=== PATIENT | male | born 2000 | race Caucasian/White ===

== ENCOUNTER 2022-08-12 08:05 | Emergency (ER) | payer OTHER, SELFPAY ==
--- NOTE | ~2022-08-12 | XR_ITS ---
EXAMINATION: XR CHEST CLINICAL INFORMATION: Cough COMPARISON: None TECHNIQUE: 2 views of the chest were obtained. FINDINGS: No significant abnormality is noted involving the heart, lungs, mediastinum, bony thorax or soft tissues. XR/XR chest 2V IMPRESSION: Unremarkable examination.
[2022-08-12 08:11] VITALS: BP 138/79; PULSE 78; RESP 16; TEMP 36.6; O2SAT 97; BMI 28.0
[2022-08-12 08:44] LABS: COVID-19 Test Negative (Negative); IDNOW Serial# 16C4AD1C
[2022-08-12 08:55] LABS: Influenza A Negative (Negative); Influenza B2 Negative (Negative)
--- NOTE | 2022-08-12 09:37 | ED_ITS ---
HPI - URI/Sore Throat General Chief Complaint: Upper Respiratory Symptoms Stated Complaint: cough chest pain Time Seen by Provider: 08/12/22 09:02 Source: patient Mode of arrival: ambulatory Limitations: no limitations History of Present Illness HPI Narrative: Patient presents emergency department for evaluation of a productive cough x5 days with green phlegm, 1 day noticed small blood tinged plaques in the phlegm. He does endorse and ill contact, has a colleague with similar symptoms. He states that he feels congestion in his chest that he just can not quite cough out. Denies fevers, chills, nasal congestion, sore throat, chest pain, palpitations, shortness of breath, difficulty breathing, nausea, vomiting, abdominal pain. Denies recent unintentional weight loss, night sweats, generalized body aches or fatigue. Related Data Previous Rx's Medication Instructions Recorded guaifenesin 600 mg tablet, 1,200 mg PO Q12H PRN cough 5 days 08/12/22 extended release 12 hr #10 tabs Allergies Allergy/AdvReac Type Severity Reaction Status Date / Time No Known Allergies Allergy Verified 08/12/22 09:54 Review of Systems Review of Systems: Constitutional: No fever. No chills. No weakness. No fatigue. ENT/ Mouth: No Ear Pain, now Nasal Congestion, no sore throat, No Rhinorrhea, No Swallowing Difficulty Skin: No rash or itching. Cardiovascular: No chest pain. No palpitations. Respiratory: No shortness of breath. Positive cough. Positive sputum production. Gastrointestinal: No nausea. No vomiting. No diarrhea. No abdominal pain. Genitourinary: No burning micturition. No urinary frequency. Neurologic: No headache. No dizziness. No syncope. No numbness or tingling in the extremities. Musculoskeletal: No muscle pain. No back pain. No joint pain or stiffness. Yes all other systems are reviewed and are negative [facility] Past Medical History Attestation statement: The following information was validated with the patient. Source: old records reviewed Social History Social History Advance Directives: No Advance Directives Information Provided: Yes Physical Exam Vital Signs: Vital Signs: Last Vital Signs Temp 97.9 F 08/12/22 08:11 Pulse 78 08/12/22 08:11 Resp 16 08/12/22 08:11 BP 138/79 08/12/22 08:11 Pulse Ox 97 08/12/22 08:11 O2 Del Method 08/12/22 08:11 BMI result Body Mass Index 28.0 Vital signs have been reviewed as normal and appeared to be correct. Blood pressure normal.? Heart rate normal.? Respiration rate normal. Temperature normal.? Oxygen saturation normal. Appearance: Alert.?Oriented to person, place and time. No acute distress.?Normal affect. Eyes: Pupils equal, round and reactive to light.? ENT: TM normal bilaterally. Pharynx normal.?? Neck: Normal inspection.? Neck supple.??No cervical adenopathy CVS: Heart sounds normal. Normal heart rate and rhythm.? Pulses normal.?? Respiratory: No respiratory distress.? Lung sounds clear to auscultation bilaterally?? Abdomen: Soft and non-tender. Normoactive bowel sounds. Skin: Skin warm and dry.? Normal skin color.? ? Extremities: No lower extremity edema.? Neuro: Moves all extremities spontaneously. Sensation intact bilaterally. No motor deficits. Ambulates with normal steady gait. Course Course Course Narrative: Patient is a 22-year-old male with no significant past medical history, presenting for evaluation of upper respiratory symptoms. COVID-19 testing negative. Influenza testing negative. Chest x-ray reveals no acute cardiopulmonary process. At this time history and physical exam not consistent with ACS/PE/pneumonia. PERC negative. No evidence of heart failure pulmonary congestion. No recent travel or risk factors for TB. Well-appearing, nontoxic, afebrile, no tachycardia or tachypnea/hypoxia. Speaking clear full sentences, ambulatory with steady gait. Discussed conservative treatment including rest, hydration, Tylenol/ibuprofen as needed for fever and body aches, saline nasal spray, humidifier, wrez-vjl-[id number] cold medication. Mucinex as an expectorant. Advised to follow-up with primary care provider as needed, discussed reasons to return back to the emergency department. All questions were answered. Patient discharged home in stable condition. MDM - URI/Sore Throat Medical Records Attestation: I reviewed the patient's medical records. Lab Data Attestation: I reviewed the patient's lab results. Labs: Lab Results 08/12/22 08/12/22 Range/Units 08:20 08:20 COVID-19 (LEEANN) Negative (Negative) COVID-19 Clin Com See Note Influenza Type A (GREGORY) Negative (Negative) Influenza Type B (GREGORY) Negative (Negative) Influenza A & B Note See Note Imaging Data Chest x-ray: Radiologist's impression: XR/XR chest 2V IMPRESSION: Unremarkable examination. Discharge Plan Discharge Clinical Impression: Upper respiratory infection Patient Disposition: Home, Self-Care Instructions: Upper Respiratory Infection (ED) Additional Instructions: As we discussed, your COVID influenza testing were both negative today. Your chest x-ray does not show any evidence of infection/pneumonia. Be sure to rest, stay well hydrated drinking plenty of fluids, eat small frequent meals. Tylenol/ibuprofen can be used as needed for fever/pain. Rngj-hjp-hbtgqad cold medications may be helpful as well for symptoms. Saline nasal spray, humidifier may be helpful for nasal congestion. Take Mucinex twice daily to help with the phlegm. A prescription was sent to your pharmacy but it is also available [id number] You may return to the emergency department with any new or worsening symptoms or concerns. Follow-up with your primary care provider as needed. Prescriptions: New guaifenesin 600 mg tablet extended release 12hr 1,200 mg PO Q12H PRN (Reason: cough) 5 Days Qty: 10 0RF
--- NOTE | 2022-08-12 10:32 | PC.NURSE ---
PT AWAKE, ALERT AND ORIENTED X 3. SKIN WARM AND DRY. RESP UNLABORED. SPEAKING IN FULL CLEAR SENTENCES. OCCASIONAL NPC. EVALUATED BY PROVIDER. RESULTS OF TESTING DISCUSSED WITH PATIENT BY PROVIDER. PLAN IS FOR DC HOME. PT AGREEABLE TO PLAN
== END 2022-08-12 10:34 | disposition home or self-care (01) ==
PROVIDERS: Emergency Provider Emergency Medicine; PCP Family Medicine
DX: J06.9 Acute upper respiratory infection, unspecified (principal); R05.9 Cough, unspecified; Z20.822 Contact with and (suspected) exposure to COVID-19
CPT/HCPCS: 71046; 87502; 87635; 99282; 99283

== ENCOUNTER 2022-11-01 07:59 | Outpatient (REF) | payer OTHER, SELFPAY ==
[2022-11-01 11:36] LABS: Appearance Urine Clear; Color Urine Yellow; Glucose Urine UA Negative (Negative); Leukocyte Esterase Urine Negative (Negative); Nitrite Urine Negative (Negative); PH 6.5 (5.0-9.0); Urine Blood Negative (Negative); Urine Ketones Negative (Negative); Urine Protein Negative (Neg-Trace)
[2022-11-01 11:38] LABS: MANUAL DIFF FLAG NO
[2022-11-01 11:50] LABS: Basophils Percent Auto 0.4 % (0-2); Eosinophils Absolute Auto 0.1 X10*3/uL (0.0-0.4); Eosinophils Percent Auto 1.9 % (0-4); Hematocrit 42.4 % (42.0-52.0); Hemoglobin 13.9 g/dl (14.0-18.0); Imm Gran Abs Auto 0.01 X10*3/uL (0.00-0.03); Imm Gran Pct Auto 0.2 % (0.0-0.4); Lymphocytes Absolute Auto 1.6 X10*3/uL (1.2-4.9); Lymphocytes Percent Auto 33.8 % (20-40); Mean Corpuscular HGB Conc 32.8 g/dl (31.0-36.0); Mean Corpuscular Hemoglobin 28.9 pg (27.0-33.0); Mean Corpuscular Volume 88.1 fL (80.0-98.0); Mean Platelet Volume 10.6 fL (9.4-12.4); Monocytes Absolute Auto 0.4 X10*3/uL (0.1-1.2); Monocytes Percent Auto 8.2 % (2-11); Neutrophils Absolute Auto 2.6 x10*3/uL (2.0-8.3); Neutrophils Percent Auto 55.5 % (45-73); Platelet Count 236 X10*3/uL (160-400); Red Blood Count 4.81 X10*6/uL (4.60-5.80); Red Cell Distribution Width 12.6 % (11.0-16.0); White Blood Count 4.6 X10*3/uL (4.8-10.8)
[2022-11-01 12:25] LABS: Syphilis Screen Nonreactive (Nonreactive)
[2022-11-01 12:27] LABS: Alanine Aminotransferase 31 U/L (0-40); Albumin Level 4.4 g/dL (3.5-5.0); Alkaline Phosphatase 73 U/L (39-117); Anion Gap 9 (12-20); Aspartate Amino Transferase 46 U/L (5-37); Bilirubin Total 0.6 mg/dL (0.0-1.0); Blood Urea Nitrogen 12 mg/dL (9-16); Calcium 9.5 mg/dL (8.4-10.2); Carbon Dioxide 30 mmol/L (22-29); Chloride 106 mmol/L (96-108); Cholesterol 197 mg/dL; Estimated Glomerular Filt Rate > 60; Glucose Fasting 86 mg/dL (60-99); HDL Cholesterol 71 mg/dL; LDL Cholesterol Calculated 115 mg/dl; Potassium 4.3 mmol/L (3.3-5.1); Sodium 141 mmol/L (135-145); Triglycerides 55 mg/dL
[2022-11-01 12:33] LABS: HIV AB/AG Nonreactive (Nonreactive); HIV Num 1 0.38 S/CO (0.00-0.99)
[2022-11-01 12:42] LABS: HBS Num1 31.16 mIU/mL (0-7.99); HBc Num1 0.11 S/CO (0.00-0.79); HBsAGNum1 0.32 S/CO (0.00-0.99); Hepatitis B Core Antibody Nonreactive (Nonreactive); Hepatitis B Surface Antigen Negative (Negative); ~HepC Num1 0.15 S/CO (0.00-0.79); ~Hepatitis B Surface Antibody REACTIVE (Nonreactive); ~Hepatitis C Antibody Nonreactive (Nonreactive)
[2022-11-01 17:08] LABS: CT PCR NOT DETECTED (Not Detect.); NG PCR NOT DETECTED (Not Detect.)
== END 2022-11-01 08:00 | disposition home or self-care (01) ==
LOC: HO.WFDLDS 07:59
PROVIDERS: Visit Provider Family Medicine
DX: Z00.00 Encounter for general adult medical examination without abnormal findings (principal); Z11.4 Encounter for screening for human immunodeficiency virus [HIV]; Z11.3 Encounter for screening for infections with a predominantly sexual mode of transmission
CPT/HCPCS: 0353U; 36415; 80053; 80061; 81003; 84443; 85025; 86704; 86706; 86780; 86803; 87340; 87389

== ENCOUNTER 2022-12-12 08:00 | Outpatient (RCR) | payer OTHER, SELFPAY ==
--- NOTE | 2022-11-13 11:10 | MHC.PT.EP ---
[facility] [place] Office [place] Office [place] Office [address] [phone] F: [phone] F: [phone] F: [phone] F: [phone] Physical Therapy Plan of Care Date of Evaluation: Date of Surgery: Diagnosis: Pain in R leg Assessment: Patient is a 22 year old R handed male who presents with s/s consistent with R knee pain. He works with daily job demands including active - [employer]. Patient past medical history includes abscess removal in R LE. Current impairments include pain, flexibility, gait mechanics, strength, activity tolerance and functional mobility. Functional limitations include decreased ability to squat, run, cut, and perform higher level activities. Patient is motivated with good rehab potential. Skilled PT will address impairments and functional limitations in order to achieve goals. Frequency and Duration: The patient will be seen 2x/week for 5 weeks Short Term Goals: I with HEP - 2 weeks Min tightness in gastroc, HS, hip flex, quad - 3 weeks Neal (-) - 3 weeks [employer] Goals: Pain free running - 5 weeks Pain free all daily activities - 5 weeks Hip strength 5/5 - 5 weeks Treatment Plan: Modalities to reduce pain, spasms and effusion. Manual therapy to restore motion and function. Therapeutic exercise to improve strength and flexibility. Neuromuscular re-education for posture and balance. Therapeutic activities to return to functional activities of daily living. Electronically signed by: Eleno Silva, PT Please sign and return to therapist. Thank you for your referral.
--- NOTE | 2023-01-01 09:33 | MHC.PT.DC ---
[facility] [place] Office [place] Office [place] Office [address] Lisa Frankel [address] [phone] F: [phone] F: [phone] F: [phone] F: [phone] Physical Therapy Discharge Report Diagnosis: Pain in R leg Date of Surgery: Date of Evaluation: 11/13/22 Date of Discharge: 12/22/22 Treatments to Date: 7 Cancellations to Date: No Shows to Date: Discharge Status: Achieved Goals Improved Function Independent with HEP Discharge Summary: 12/12/22: pt progressed well over the course of skilled PT. daniella (-). met all goals and appropriate to d/c to HEP at this time. he is confident in self management at this time. 12/02/22: pt has been progressing well with less knee pain and improved strength and flex. we will discern tapering NV. 11/28/22: pt has been feeling better overall and tolerated TM jogging with little discomfort that resolved with increased time on TM. we will continue to progress as tolerated with flex and hip strength focus. 11/26/22: continues to progress well. we will try TM jogging next visit and assess mechanics here. continue to push flex, and hip strength. 11/22/22: pt progressing well with less knee pain b/l. encouraged him to try quad rolling at home today. assess response NV. good mechanics with TRX and shuttle jumps. 11/20/22: pt with minor R knee pain with single leg squat. no adverse reactions otherwise. focus on stretching and hip strength. encouraged him to continue with ITB Rolling at home as well. 11/15/22: pt progressing well with skilled PT. compliant with HEP. progressed with strength today. no adverse reactions. progress as tolerated. Patient is a 22 year old R handed male who presents with s/s consistent with R knee pain. 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 Patient past medical history includes abscess removal in R LE. Current impairments include pain, flexibility, gait mechanics, strength, activity tolerance and functional mobility. Functional limitations include decreased ability to squat, run, cut, and perform higher level activities. Patient is motivated with good rehab potential. Skilled PT will address impairments and functional limitations in order to achieve goals. Electronically signed by: Eleno Silva, PT Please sign and return to therapist. Thank you for your referral.
== END 2023-01-01 09:33 | disposition home or self-care (01) ==
LOC: HO.PTCHIC 08:00
PROVIDERS: PCP Family Medicine; Visit Provider Family Medicine
DX: M79.604 Pain in right leg (principal)
CPT/HCPCS: 97110; 97140; 97161

== ENCOUNTER 2023-01-17 12:04 | Outpatient (REF) | payer OTHER, SELFPAY ==
[2023-01-17 14:21] LABS: Influenza A PCR NEGATIVE (Negative); Influenza B PCR NEGATIVE (Negative); Resp Syncy Virus RNA Qual PCR NEGATIVE (Negative); SARS COV2 PCR INHOUSE NEGATIVE (Negative)
== END 2023-01-17 12:05 | disposition home or self-care (01) ==
LOC: HO.LAB 12:04
PROVIDERS: Visit Provider Nurse Practitioner Family
DX: Z20.822 Contact with and (suspected) exposure to COVID-19 (principal); J06.9 Acute upper respiratory infection, unspecified
CPT/HCPCS: 0241U

== ENCOUNTER 2023-01-31 09:42 | Outpatient (REF) | payer OTHER, SELFPAY ==
[2023-01-31 11:21] LABS: MANUAL DIFF FLAG NO
[2023-01-31 11:59] LABS: Basophils Percent Auto 0.2 % (0-2); Eosinophils Absolute Auto 0.1 X10*3/uL (0.0-0.4); Eosinophils Percent Auto 2.6 % (0-4); Hematocrit 39.8 % (42.0-52.0); Hemoglobin 13.6 g/dl (14.0-18.0); Imm Gran Abs Auto 0.01 X10*3/uL (0.00-0.03); Imm Gran Pct Auto 0.2 % (0.0-0.4); Lymphocytes Absolute Auto 1.4 X10*3/uL (1.2-4.9); Mean Corpuscular HGB Conc 34.2 g/dl (31.0-36.0); Mean Corpuscular Hemoglobin 29.2 pg (27.0-33.0); Mean Corpuscular Volume 85.6 fL (80.0-98.0); Mean Platelet Volume 10.8 fL (9.4-12.4); Monocytes Absolute Auto 0.3 X10*3/uL (0.1-1.2); Monocytes Percent Auto 5.9 % (2-11); Neutrophils Absolute Auto 2.8 x10*3/uL (2.0-8.3); Neutrophils Percent Auto 61.1 % (45-73); Platelet Count 229 X10*3/uL (160-400); Red Blood Count 4.65 X10*6/uL (4.60-5.80); Red Cell Distribution Width 12.2 % (11.0-16.0); White Blood Count 4.6 X10*3/uL (4.8-10.8)
[2023-01-31 12:17] LABS: Alanine Aminotransferase 19 U/L (0-40); Albumin Level 4.6 g/dL (3.5-5.0); Alkaline Phosphatase 65 U/L (39-117); Anion Gap 16 (12-20); Aspartate Amino Transferase 30 U/L (5-37); Bilirubin Total 0.7 mg/dL (0.0-1.0); Blood Urea Nitrogen 18 mg/dL (9-16); Calcium 9.5 mg/dL (8.4-10.2); Carbon Dioxide 25 mmol/L (22-29); Chloride 106 mmol/L (96-108); Estimated Glomerular Filt Rate > 60; Glucose Random 95 mg/dL (60-115); Sodium 143 mmol/L (135-145); Total Protein 6.9 g/dL (6.5-8.0)
== END 2023-01-31 09:43 | disposition home or self-care (01) ==
LOC: HO.WFDLDS 09:42
PROVIDERS: Visit Provider Family Medicine
DX: Z00.00 Encounter for general adult medical examination without abnormal findings (principal); D64.9 Anemia, unspecified; R74.8 Abnormal levels of other serum enzymes
CPT/HCPCS: 36415; 80053; 85025

== ENCOUNTER 2023-02-14 08:14 | Outpatient (REF) | payer OTHER, SELFPAY ==
[2023-02-14 11:39] LABS: MANUAL DIFF FLAG NO
[2023-02-14 11:58] LABS: Basophils Percent Auto 0.4 % (0-2); Eosinophils Absolute Auto 0.1 X10*3/uL (0.0-0.4); Eosinophils Percent Auto 2.5 % (0-4); Hematocrit 42.4 % (42.0-52.0); Hemoglobin 13.8 g/dl (14.0-18.0); Imm Gran Abs Auto 0.01 X10*3/uL (0.00-0.03); Imm Gran Pct Auto 0.2 % (0.0-0.4); Immature Retic Fraction 8.2 % (2.3-13.4); Lymphocytes Absolute Auto 1.7 X10*3/uL (1.2-4.9); Lymphocytes Percent Auto 29.9 % (20-40); Mean Corpuscular HGB Conc 32.5 g/dl (31.0-36.0); Mean Corpuscular Hemoglobin 28.9 pg (27.0-33.0); Mean Corpuscular Volume 88.7 fL (80.0-98.0); Mean Platelet Volume 10.8 fL (9.4-12.4); Monocytes Absolute Auto 0.4 X10*3/uL (0.1-1.2); Monocytes Percent Auto 6.2 % (2-11); Neutrophils Absolute Auto 3.5 x10*3/uL (2.0-8.3); Neutrophils Percent Auto 60.8 % (45-73); Platelet Count 210 X10*3/uL (160-400); Red Blood Count 4.78 X10*6/uL (4.60-5.80); Red Cell Distribution Width 12.5 % (11.0-16.0); Retic HGB Equivalent 34.8 pg (30.0-35.0); Reticulocyte Percent 1.3 % (0.5-1.8); Reticulocytes Absolute 0.061 X10*6/uL (0.026-0.095); White Blood Count 5.7 X10*3/uL (4.8-10.8)
[2023-02-14 12:57] LABS: Alanine Aminotransferase 19 U/L (0-40); Albumin Level 4.4 g/dL (3.5-5.0); Alkaline Phosphatase 78 U/L (39-117); Anion Gap 11 (12-20); Aspartate Amino Transferase 27 U/L (5-37); Bilirubin Total 0.3 mg/dL (0.0-1.0); Blood Urea Nitrogen 12 mg/dL (9-16); Calcium 9.4 mg/dL (8.4-10.2); Carbon Dioxide 27 mmol/L (22-29); Chloride 108 mmol/L (96-108); Estimated Glomerular Filt Rate > 60; Glucose Random 105 mg/dL (60-115); Iron 60 mcg/dL (45-160); Percent Iron Saturation 23 % (15-50); Potassium 4.4 mmol/L (3.3-5.1); Sodium 142 mmol/L (135-145); Total Iron Binding Capacity 261 mcg/dL (228-428); Total Protein 6.8 g/dL (6.5-8.0); Unsaturated Iron Binding 201 ug/dL
[2023-02-14 13:09] LABS: Folate > 20.0 ng/mL (> or = 4.0); Vitamin B12 930 pg/mL (200-900)
== END 2023-02-14 08:15 | disposition home or self-care (01) ==
LOC: HO.WFDLDS 08:14
PROVIDERS: Visit Provider Family Medicine
DX: Z00.00 Encounter for general adult medical examination without abnormal findings (principal); E53.8 Deficiency of other specified B group vitamins; D64.9 Anemia, unspecified
CPT/HCPCS: 36415; 80053; 82607; 82746; 83540; 85025; 85045

== ENCOUNTER 2023-09-02 10:45 | Outpatient (AMB) | payer OTHER, SELFPAY ==
[2023-09-02 10:52] VITALS: BP 110/66; PULSE 75; O2SAT 98; BMI 33.4
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
== END 2023-09-02 11:55 | disposition home or self-care (01) ==
PROVIDERS: PCP Family Medicine; Visit Provider Family Medicine
DX: S46.819A Strain of other muscles, fascia and tendons at shoulder and upper arm level, unspecified arm, initial encounter (principal); R51.9 Headache, unspecified; V89.2XXA Person injured in unspecified motor-vehicle accident, traffic, initial encounter; Z04.3 Encounter for examination and observation following other accident
CPT/HCPCS: 99213